=== PATIENT | female | born 1960 | race Caucasian/White ===

== ENCOUNTER → 2018-03-27 | Outpatient (CLI) | payer BC, OTHER ==
[~2018-03-27] MED LIST: ASPEC325; CLTP PO; FLX10 PO; HYDR-4079 PO; MELO7.5T5 PO; MORP60CA18 PO; MULT-506 PO; PRLSR20 PO; TRVOPS OPB
--- NOTE | 2018-03-28 09:32 | PULMONARY FUNCTION TEST ---
Spirometry is normal. Repeat study done following bronchodilator showed no change in function. Flow volume loops are normal.
== END | disposition home or self-care (01) ==
LOC: C.RC 12:42
PROVIDERS: ATTEND Internal Medicine
DX: R00.2 Palpitations (principal); R06.02 Shortness of breath; F17.210 Nicotine dependence, cigarettes, uncomplicated

== ENCOUNTER 2020-01-28 15:59 | Observation (INO) ==
[2020-01-28] MEDS ORDERED: NITROGLYCERIN SL 0.4 MG/TAB TAB SL PRN (16:19)
[2020-01-28 16:27] LABS: Basophils # (auto) 0.03 K/uL (0-0.2); Basophils % (auto) 0.3 %; Eosinophils # (auto) 0.19 K/uL (0-0.5); Eosinophils % (auto) 2.2 %; Hematocrit (blood only) 41.9 % (37-47); Hemoglobin 14.3 g/dL (12.0-16.0); Immature Granulocytes # (auto) 0.03 K/uL (0.00-0.02); Immature Granulocytes % (auto) 0.3 %; Lymphocytes # (auto) 3.01 K/uL (1.2-3.4); Lymphocytes % (auto) 34.8 %; Mean Corpuscular Hemoglobin 33.7 pg (25-34); Mean Corpuscular Hgb Conc 34.1 g/dL (32-36); Mean Corpuscular Volume 98.8 fL (80-100); Mean Platelet Volume 10.1 fL (7.4-10.4); Monocytes # (auto) 0.51 K/uL (0.11-0.59); Monocytes % (auto) 5.9 %; Neutrophils # (auto) 4.87 K/uL (1.4-6.5); Neutrophils % (auto) 56.5 %; Platelet Count 268 K/uL (130-400); RDW Coefficient of Variation 12.7 % (11.5-14.5); RDW Standard Deviation 45.7 fL (36.4-46.3); Red Blood Count 4.24 M/uL (4.2-5.4); White Blood Count 8.64 K/uL (4.8-10.8)
--- NOTE | 2020-01-28 16:27 | Emergency Department Note ---
ED Visit Note Patient was seen and evaluated at the bedside w/ MERE Amin. Please see their note for history, physical, details, and disposition. Patient does present with concern for chest pain substernal exertional in nature. Also present rest. The patient is already taken a full dose aspirin. Blood work was obtained along with an EKG which is nonischemic ordered nitro. A chest x-ray was also ordered. Patient is normal white count H&H and platelet count. Kidney function is unremarkable. Troponin is not detectable currently. Lipase borderline elevated. Patient was admitted to the medicine service. .
--- NOTE | 2020-01-28 16:37 | Emergency Department Note ---
Impression & Plan Exertional chest pain, Hypertension, Tachycardia ED Provider Note CHIEF COMPLAINT: Chest pain HISTORY OF PRESENTING ILLNESS: This is a 60-year-old female with past medical history significant for hypertension, dyslipidemia, prediabetes, and tachycardia, who presents to the emergency department by private vehicle with complaint of chest pain that started around 2 PM today. Patient notes that she has been having exertional chest pain and shortness of breath for the past few weeks, but the symptoms usually resolve when she rests. Today she started to have some chest pain with mild exertion and she sat down, but the pain did not go away with rest. She notes a history of tachycardia that was diagnosed a few years ago, she states she takes metoprolol for this. She states that she has been feeling like she is having irregular heartbeat today. She notes that she has been feeling lightheaded off and on as well which is new today. She states the chest pain is in the center of her chest, does not radiate, is constant and feels like a pressure, she currently rates it a 7/10. She states she took a full-strength aspirin earlier today and has been taking aspirin for the past few weeks since her chest pain started. She notes that she has had a stress test in the past about 2 years ago that was unremarkable. She is a current everyday smoker. She also notes a family history for heart disease, states her father has had several heart attacks. REVIEW OF SYSTEMS: A complete 10 point review of systems was reviewed with the patient with pertinent positives and negatives as per history of present illness. All else were negative. PAST MEDICAL HISTORY: Hypertension, dyslipidemia, tachycardia, cervical radiculopathy, restless leg syndrome, prediabetes SOCIAL HISTORY: Lives at home with her , she is a current every day smoker ALLERGIES: Reviewed in chart and with the patient PHYSICAL EXAM: CONSTITUTIONAL: Pleasant and cooperative. Nontoxic-appearing and in no acute distress. Well appearing and well nourished. HEENT: Normocephalic, atraumatic. NECK: Supple, full active range of motion without discomfort. No cervical adenopathy. No JVD. RESPIRATORY: Scant expiratory wheezes, but otherwise clear to auscultation bilaterally with no crackles, rhonchi or stridor. Mild tachypnea, but no labored breathing. No accessory muscle use. Equal expansion bilaterally. CARDIOVASCULAR: Tachycardic, irregular rhythm with no murmurs, rubs or gallops. Normal peripheral perfusion, 2+ distal pulses in all 4 extremities. No pitting edema. GASTROINTESTINAL: Soft, nontender, nondistended. No palpable masses or HSM. Bowel sounds present in all quadrants. MUSCULOSKELETAL: No calf tenderness or swelling. Negative Homans sign. Full range of motion of all joints without discomfort. INTEGUMENTARY: No rash or other significant dermatologic conditions noted. NEUROLOGIC: Alert and oriented X 4 with normal affect. Normal strength and sensation in all 4 extremities. Normal speech. Normal gait observed. ED COURSE AND MEDICAL DECISION MAKING: CC: Patient presenting with complaint of chest pain DIFFERENTIAL DIAGNOSIS: Includes, but not limited to acute coronary syndrome, unstable angina, pulmonary embolism, aortic dissection, pneumothorax, pericarditis, anxiety, musculoskeletal pain, GERD, costochondritis, pneumonia, among others. INTERPRETATION OF LABS: No leukocytosis, no anemia, normal platelets, no significant electrolyte abnormalities, normal renal function, normal T bili and ALT, mildly elevated AST and alk phos, mildly elevated lipase. CK-MB, total CK, and initial troponin are all negative. Coagulation factors within normal limits. IMAGING: XR chest 1V portable HISTORY: 60 years-old Female Chest Pain acute atypical chest pain COMPARISON: None TECHNIQUE: Portable AP view the chest FINDINGS: Cardiac mediastinal and hilar silhouettes are within normal limits. No pneumothorax, pleural effusion, airspace consolidation or overt pulmonary edema. Bones of the chest appear grossly intact. IMPRESSION: No acute process. EKG: Shows sinus tachycardia with a rate of 117 bpm, normal intervals, no ST or T wave abnormalities, no ectopy by my interpretation. No previous EKG available for comparison. MEDICATION RECONCILIATION: I attest that I have personally reviewed the patient's current medication list. INITIAL VITAL SIGNS REVIEW: I reviewed the patient's initial vital signs and interpret them as follows: T: Afebrile; BP: Hypertensive; HR: Tachycardic; RR: Tachypneic; Pulse Ox: Within normal limits on room air. Blood pressure screening: The patient was found to have an elevated blood pressure and was referred to the inpatient team for further management. MDM SUMMARY: Patient was evaluated at bedside, history and physical exam performed. Patient is alert and oriented, in no acute distress, resting calmly in the stretcher. EKG reviewed at bedside, no ischemic changes noted. Cardiac monitoring: An order was placed for continuous cardiac monitoring. The monitor shows a rate of 125 bpm with sinus tachycardia rhythm. The patient does note a history of tachycardia and states her baseline heart rate is between 100 to 120 bpm normally. Lungs are clear, the patient is not tachypneic or with labored breathing on my assessment. No hypoxia. Heart score of 5, placing her at moderate risk. Wells' score is 1.5, low risk and I have a low suspicion for PE. Orders were placed at bedside for labs, chest x-ray to evaluate for cardiopulmonary disease. Sublingual nitroglycerin to treat chest pain. She already had a full strength aspirin earlier today. Patient discussed with Dr. Daly, who agrees with my assessment, plan, and disposition. Labs and imaging reviewed as above, cardiac markers are all negative. A second troponin is pending. The lipase is noted to be mildly elevated. The patient does not have any abdominal tenderness on repeat exam, I do not suspect pancreatitis clinically. Chest x-ray is clear. Given the patient's report of progressively worsening exertional chest pain that is now persistent at rest, along with her moderate risk factors, I feel that she would benefit from an observation stay for chest pain rule out and probable stress test tomorrow. Patient reassessed multiple times throughout ED stay, she has remained hemodynamically stable, her chest pain was slightly improved with the nitroglycerin. The patient was updated on all results and plan for admission for chest pain ru le out, she was agreeable to this plan. We spoke with Dr. Jackson, [facility] hospitalist, who agrees to evaluate the patient for admission/observation. Patient was stable at time of admission. The chart was completed utilizing [employer] Speech voice recognition software. Grammatical errors, random word insertions, pronoun errors, and incomplete sentences are an occasional consequence of this system due to software limitations, ambient noise, and hardware issues. Any formal questions or concer ns about the content, text, or information contained within the body of this dictation should be directly addressed to the nurse practitioner for clarification. Past Med/Surg History Medical History Bilateral leg weakness Cervical radiculopathy Dyslipidemia Hypertension Low back pain Neck pain Numbness and tingling in both hands Palpitations RLS (restless legs syndrome) SOB (shortness of breath) Tachycardia Thoracic spine pain Surgical History No history of previous surgery Family History Father Hx of CABG Social History Preferred Language: Romanian Communication Ability: Effective Property Appraiser Required: No Beliefs That Will Affect Care: None Current Living Situation: Spouse Other Information That Helps Us Care for You: No Feels Safe at Home: Yes Safety Concerns: Feels Safe At This Time Smoking Status: Current every day smoker Tobacco Type: cigarettes ; Cigarettes Per Day: 5 ; Do You Dip or Chew Tobacco: No ; Second Hand Exposure: Yes ; Tobacco Cessation Education Requested by Patient: No Hx Alcohol Use: Yes Alcohol type: wine Hx Substance Use: No Allergies Allergies Allergy/AdvReac Type Severity Reaction Status Date / Time fentanyl Allergy Mild RASH Unverified 01/28/20 17:55 oxycodone Allergy Mild RASH Unverified 01/28/20 17:55 Home Meds Home Medications Medication Instructions Recorded Confirmed pantoprazole 20 mg tablet,delayed 20 mg PO QAM 06/22/19 01/28/20 release simvastatin 5 mg tablet 5 mg PO HS 06/22/19 01/28/20 lisinopril 20 mg tablet 20 mg PO BID tab 10/05/19 01/28/20 propylthiouracil 50 mg tablet 50 mg PO MOWEFR tab 10/05/19 01/28/20 aspirin 325 mg PO DAILY PRN 01/28/20 01/28/20 biotin 2,500 mcg PO QAM 01/28/20 01/28/20 cholecalciferol (vitamin D3) 5,000 units PO QAM 01/28/20 01/28/20 metoprolol succinate 100 mg PO QAM 01/28/20 01/28/20 multivitamin 1 tab PO QAM 01/28/20 01/28/20 pramipexole 0.25 mg PO TID 01/28/20 01/28/20 Previous Rx's Medication Instructions Recorded cyclobenzaprine 10 mg tablet 10 mg PO BID 30 Days #180 tab 10/05/19 meloxicam 7.5 mg tablet 7.5 mg PO BID 90 Days #180 tab 02/03/20 Results & Data (ED) Vital Signs Vital Signs - 24 hr 01/28/20 16:02 01/28/20 16:19 01/28/20 16:30 Temperature 36.7 C Temperature Source Oral Pulse Rate 120 H 120 H 121 H Pulse Rate from SpO2 Sensor Respiratory Rate 28 H 18 21 Respiratory Effort / Characteristics Labored Respiratory Depth Shallow Respiratory Pattern Tachypnea Blood Pressure 148/102 H 146/92 H 131/94 Blood Pressure Mean 117 96 109 Pulse Oximetry 100 98 95 Oxygen Delivery Method Room Air Sepsis Recent Fever Within 48 Hours No Sepsis Action Taken by Nursing No Action Required 01/28/20 17:26 01/28/20 17:27 01/28/20 17:30 Temperature Temperature Source Pulse Rate 128 H 131 H Pulse Rate from SpO2 Sensor 112 H Respiratory Rate 15 18 Respiratory Effort / Characteristics Respiratory Depth Respiratory Pattern Blood Pressure 122/84 128/85 Blood Pressure Mean 93 93 Pulse Oximetry 97 96 95 Oxygen Delivery Method Room Air Sepsis Recent Fever Within 48 Hours Sepsis Action Taken by Nursing 01/28/20 18:00 01/28/20 18:30 01/28/20 18:34 Temperature Temperature Source Pulse Rate 131 H 129 H 131 H Pulse Rate from SpO2 Sensor 129 H 126 H 120 H Respiratory Rate 17 18 17 Respiratory Effort / Characteristics Respiratory Depth Respiratory Pattern Blood Pressure 121/83 124/95 Blood Pressure Mean 94 99 Pulse Oximetry 96 95 96 Oxygen Delivery Method Sepsis Recent Fever Within 48 Hours Sepsis Action Taken by Nursing Laboratory Data Result diagrams: 01/28/20 16:12 01/28/20 16:12 Lab Results 01/28/20 01/28/20 01/28/20 Range/Units 16:12 16:12 16:12 WBC 8.64 (4.8-10.8) K/uL RBC 4.24 (4.2-5.4) M/uL Hgb 14.3 (12.0-16.0) g/dL Hct 41.9 (37-47) % MCV 98.8 (80-100) fL MCH 33.7 (25-34) pg MCHC 34.1 (32-36) g/dL RDW Std Deviation 45.7 (36.4-46.3) fL RDW Coeff of Tristen 12.7 (11.5-14.5) % Plt Count 268 (130-400) K/uL MPV 10.1 (7.4-10.4) fL Immature Gran % (Auto) 0.3 % Neut % (Auto) 56.5 % Lymph % (Auto) 34.8 % [place] % (Auto) 5.9 % Eos % (Auto) 2.2 % Baso % (Auto) 0.3 % Immature Gran # (Auto) 0.03 H (0.00-0.02) K/uL Neut # (Auto) 4.87 (1.4-6.5) K/uL Lymph # (Auto) 3.01 (1.2-3.4) K/uL [place] # (Auto) 0.51 (0.11-0.59) K/uL Eos # (Auto) 0.19 (0-0.5) K/uL Baso # (Auto) 0.03 (0-0.2) K/uL PT 10.5 (9.0-12.0) Seconds INR 1.0 (0.9-1.1) APTT 25.0 (21.0-31.0) Seconds PTT Ratio 0.9 Sodium 138 (136-145) mmol/L Potassium 3.6 (3.5-5.1) mmol/L Chloride 106 (98-107) mmol/L Carbon Dioxide 25 (21-32) mmol/L Anion Gap 7.0 (3-11) BUN 9 (7-18) mg/dl Creatinine 0.94 (0.6-1.2) mg/dl Est Cr Clr Drug Dosing 64.0 ml/min Est GFR ( Amer) 77.5 Est GFR (Non-Af Amer) 66.9 BUN/Creatinine Ratio 9.8 L (10-20) Glucose 114 H (70-99) mg/dl Calcium 10.2 H (8.5-10.1) mg/dl Magnesium 2.2 (1.8-2.4) mg/dl Total Bilirubin 0.3 (0.2-1) mg/dl AST 56 H (15-37) U/L ALT 75 (12-78) U/L Alkaline Phosphatase 138 H (45-117) U/L Total Creatine Kinase 104 (26-192) U/L CK-MB (CK-2) < 1.0 (0.5-3.6) ng/ml CK/CKMB % Calc TNP Troponin I < 0.015 (0-0.045) ng/ml Total Protein 8.3 H (6.4-8.2) gm/dl Albumin 4.2 (3.4-5.0) gm/dl Globulin 4.1 H (2.5-4.0) gm/dl Albumin/Globulin Ratio 1.0 (0.9-2) Lipase 606 H (73-393) U/L Administered Medications Aspirin (Ecotrin) 325 mg PO QAM REGGIE Stop: 02/27/20 19:59 Last Admin: 01/28/20 20:56 Dose: 325 mg Documented by: [id number] Cyclobenzaprine HCl (Flexeril) 10 mg PO BID REGGIE Stop: 02/27/20 20:59 Last Admin: 01/28/20 20:56 Dose: 10 mg Documented by: [id number] Heparin Sodium (Porcine) (Heparin Sodium (Porcine)) 5,000 units SQ Q8 REGGIE Stop: 02/27/20 21:59 Last Admin: 01/28/20 20:58 Dose: 5,000 units Documented by: [id number] Cosigned by: [id number] Ioversol (Optiray 320 125ml) 118 ml IV ONCE PRN PRN Reason: Interaction Checking Stop: 02/01/20 18:59 Last Admin: 01/28/20 19:01 Dose: 1 ml Documented by: [id number] Lisinopril (Zestril) 20 mg PO BID REGGIE Stop: 02/27/20 20:59 Last Admin: 01/28/20 20:56 Dose: 20 mg Documented by: [id number] Meloxicam (Mobic) 7.5 mg PO BID [facility] Stop: 02/27/20 20:59 Last Admin: 01/28/20 20:56 Dose: 7.5 mg Documented by: [id number] Nitroglycerin (Nitrostat) 0.4 mg SL UD PRN PRN Reason: Chest Pain Stop: 02/27/20 16:18 Last Admin: 01/28/20 17:07 Dose: 0.4 mg Documented by: [id number] Pramipexole Dihydrochloride (Mirapex) 0.25 mg PO TID REGGIE Stop: 02/27/20 20:59 Last Admin: 01/28/20 20:56 Dose: 0.25 mg Documented by: [id number] Simvastatin (Zocor) 5 mg PO HS [facility] Stop: 02/27/20 20:59 Last Admin: 01/28/20 21:27 Dose: 5 mg Documented by: [id number] Discharge Plan Visit Data *Final* Discharge Date/Time: 01/28/20 19:20 Chief Complaint: Chest Pain Stated Complaint: chest pain - sob - light headed - irregular pulse ED Provider: Thanh Daly ED Midlevel Provider: Mary Ludwig Discharge Problem: Exertional chest pain, Hypertension, Tachycardia Patient Disposition: Admitted As Inpatient Discharge Instructions Interventions: ED Discharge Assessment Last Done: 01/28/20 19:20 Discharge Problem: Hypertension Qualifiers: Hypertension type: unspecified Qualified Code(s): I10 - Essential (primary) hypertension
[2020-01-28 16:38] LABS: Partial Thromboplastin Ratio 0.9; Prothrombin Time 10.5 Seconds (9.0-12.0)
[2020-01-28 16:44] LABS: Alanine Aminotransferase 75 U/L (12-78); Albumin Level 4.2 gm/dl (3.4-5.0); Aspartate Aminotransferase 56 U/L (15-37); BUN Creatinine Ratio 9.8 (10-20); Blood Urea Nitrogen 9 mg/dl (7-18); Calcium 10.2 mg/dl (8.5-10.1); Carbon Dioxide 25 mmol/L (21-32); Chloride 106 mmol/L (98-107); Est GFR (African American) 77.5; Est GFR (Non-African American) 66.9; Glucose 114 mg/dl (70-99); Lipase 606 U/L (73-393); Magnesium 2.2 mg/dl (1.8-2.4); Potassium 3.6 mmol/L (3.5-5.1); Sodium 138 mmol/L (136-145)
[2020-01-28 16:49] LABS: Alkaline Phosphatase 138 U/L (45-117); Bilirubin,Total 0.3 mg/dl (0.2-1); Creatine Kinase 104 U/L (26-192); Creatine Kinase MB < 1.0 ng/ml (0.5-3.6); Globulin 4.1 gm/dl (2.5-4.0); Total Protein 8.3 gm/dl (6.4-8.2); Troponin I < 0.015 ng/ml (0-0.045)
--- NOTE | 2020-01-28 16:52 | XRay Report ---
XR chest 1V portable HISTORY: 60 years-old Female Chest Pain acute atypical chest pain COMPARISON: None TECHNIQUE: Portable AP view the chest FINDINGS: Cardiac mediastinal and hilar silhouettes are within normal limits. No pneumothorax, pleural effusion , airspace consolidation or overt pulmonary edema. Bones of the chest appear grossly intact. IMPRESSION: No acute process. ACT 112: Negative or not required by law. The above report was generated using voice recognition software. It may contain grammatical, syntax o r spelling errors. Electronically signed by: Stephan Watt M.D. 01/28/2020 4:51 PM
--- NOTE | 2020-01-28 18:49 | History & Physical Report ---
Date of Service January 28, 2020 Assessment & Plan (1) Tachycardia: (2) RLS (restless legs syndrome): (3) Palpitations: (4) Hypertension: (5) Dyslipidemia: (6) Chest pain: Cardiology eval, Obs tele, continue OP meds, Damaris, ASA, SC Heparin, She says tachycardia is normal for her, DDimer, if Pos CTA Chest ROS-No Headache, No Visual Changes, No Nausea, No Vomiting, No Fever, No Chills, No Neck Pain or Stiffness, + Chest Pain, + Palpitations, + SOB, No ANAND, No Cough, No Sputum, No Wheezing, No Abdominal Pain, No Diarrhea, No Hematemesis, No Hemoptysis, No Unexpected Weight Loss, No Flank pain, No Melena, No Hematochezia, No Frequency, No Urgency, No Burning, No Hematuria, No Rashes, No Diaphoresis. Appetite is Normal Physical Exam Gen-AAO x 3, NAD, Afebrile Head-NCAT, EOMI, PERRLA, Anicteric Sclera, No Posterior Pharyngeal Erythema Neck-Supple, No JVD, No Thyromegaly, No Masses, No LAD, No Bruits Lungs-Clear to Auscultation Bilaterally, No Rales, No Rhonchi, No Wheezing, No Crepitus Chest-ST c PVCs, No S4, +S1, +S2, No S3, No Murmurs, No Rubs, No Gallops, + Ectopy Abdomen-Soft, Bowel Sounds Present, Non Tender, Non Distended, No Hepatomegaly, No Splenomegaly, No Palpable Masses, No Rebound, No Rigidity, No Guarding Musculoskeletal-Full Range of Motion Bilaterally, No CVAT Extremities-No Cyanosis, No Clubbing, No Edema Nuero-Cranial Nerves II-XII grossly intact, Motor WNL, DTRs WNL, Strength WNL, Non Focal Psych-Normal Mood History of Present Illness 60 yo female c PMH below c/o CP today 02/09 in the center of her chest. No radia tion to neck, Jaw, or down her arms. +SOB and lightheadedness with it. No diaphoresis. She also c/o irreg pulse, but has a Hx of PVCs and wore a monitor for a week a few years ago that diagnosed this. PMH Back Pain, HLD, HTN, Pre DM, Thyrotoxicosis, GERD, DDD PSH L4-4 back Sx, T&A FH Mother alive c DM, F alive w CAD, AMI, 7V Cabg, 3 healthy sisters, no brothers, no kids Soc , Disabled, 1 ppd x 42 years, +Wine Primary Care Provider: Feli Willis Allergies Allergy/AdvReac Type Severity Reaction Status Date / Time fentanyl Allergy Mild RASH Unverified 01/28/20 17:55 oxycodone Allergy Mild RASH Unverified 01/28/20 17:55 Home Medications Home Medications Medication Instructions Recorded Confirmed Type pantoprazole 20 mg tablet,delayed 20 mg PO QAM 06/22/19 01/28/20 History release simvastatin 5 mg tablet 5 mg PO HS 06/22/19 01/28/20 History cyclobenzaprine 10 mg tablet 10 mg PO BID 30 Days #180 tab 10/05/19 01/28/20 Rx lisinopril 20 mg tablet 20 mg PO BID tab 10/05/19 01/28/20 History meloxicam 7.5 mg tablet 7.5 mg PO BID 90 Days #180 tab 10/05/19 01/28/20 Rx propylthiouracil 50 mg tablet 50 mg PO MOWEFR tab 10/05/19 01/28/20 History aspirin 325 mg PO DAILY PRN 01/28/20 01/28/20 History biotin 2,500 mcg PO QAM 01/28/20 01/28/20 History cholecalciferol (vitamin D3) 5,000 units PO QAM 01/28/20 01/28/20 History metoprolol succinate 100 mg PO QAM 01/28/20 01/28/20 History multivitamin 1 tab PO QAM 01/28/20 01/28/20 History pramipexole 0.25 mg PO TID 01/28/20 01/28/20 History Past Med/Surg History Medical History Bilateral leg weakness Cervical radiculopathy Dyslipidemia Hypertension Low back pain Neck pain Numbness and tingling in both hands Palpitations RLS (restless legs syndrome) SOB (shortness of breath) Tachycardia Thoracic spine pain Surgical History No history of previous surgery Family History Father Hx of CABG Social History Feels Safe at Home: Yes Smoking Status: Current every day smoker Results & Data Results & Data ([facility]) Vital Signs (Past 12 Hours) Vital Signs Temp Pulse Resp BP Pulse Ox 01/28/20 18:34 131 H 17 96 01/28/20 18:30 129 H 18 124/95 95 01/28/20 18:00 131 H 17 121/83 96 01/28/20 17:30 131 H 18 128/85 95 01/28/20 17:27 128 H 15 122/84 96 01/28/20 17:26 97 01/28/20 16:30 121 H 21 131/94 95 01/28/20 16:19 120 H 18 146/92 H 98 01/28/20 16:02 36.7 C 120 H 28 H 148/102 H 100 Allergies fentanyl Allergy (Mild, Unverified 01/28/20 17:55) RASH oxycodone Allergy (Mild, Unverified 01/28/20 17:55) RASH Height/Weight/Isolation Height 5 ft 3 in Weight 76.7 kg Chemistry 01/28/20 16:12 Sodium 138 Potassium 3.6 Chloride 106 Carbon Dioxide 25 Anion Gap 7.0 BUN 9 Creatinine 0.94 Glucose 114 H Code Status & VTE Plan VTE Prophylaxis Plan VTE Prophylaxis will be ordered: Yes
[2020-01-28] MEDS ORDERED: OPTIRAY 320 125ml IV PRN (19:00)
--- NOTE | 2020-01-28 19:26 | CT Scan Report ---
CT ANGIOGRAM OF THE CHEST CLINICAL HISTORY: Atypical chest pain. Suspected pulmonary embolism. COMPARISON STUDY: Chest x-ray dated 01/20/2020 TECHNIQUE: Following the IV administration of 118 mL of Optiray-320, CT angiogram of the thorax was p erformed from the thoracic inlet to the lung bases utilizing the pulmonary embolus protocol. Images a re reviewed in the axial, sagittal, and coronal planes. IV contrast was administered without complica tion. MIP imaging was performed. A dose lowering technique was utilized adhering to the principles o f ALARA. CT DOSE: 317.49 mGy.cm FINDINGS: There is hepatic steatosis. There is no evidence of pathologic adenopathy. There are bilateral breast nodules. These were described on prior mammography. There was no evidence of thoracic aortic dilatation. There were no pulmonary artery filling defects to indicate acute pulmonary embolism. No pleural effusions are visualized. There is no focal pulmonary consolidation. There is mild dependent groundglass opacity, likely atelec tatic. There is mild respiratory motion artifact IMPRESSION: 1. No evidence of acute pulmonary embolism 2. No evidence of focal pulmonary consolidation 3. No evidence of pneumothorax. No pleural effusions 4. Hepatic steatosis ACT 112: Negative or not required by law. Electronically signed by: Abhinav Edward M.D. 01/28/2020 7:25 PM
[2020-01-28] MEDS ORDERED: MAGNESIUM HYDROXIDE SUSP 30 ML UDC PO PRN (19:51)
[2020-01-28] MEDS ORDERED: MoRPHine SULFATE 4 MG/ML 1 ML CARP\\VIAL IV PRN (19:51)
[2020-01-28] MEDS ORDERED: ACETAMINOPHEN 325 MG TAB PO PRN (19:51)
[2020-01-28] MEDS ORDERED: ASPIRIN 325 MG ECTAB PO PRN (19:51)
[2020-01-28] MEDS ORDERED: ONDANSETRON INJ 2 MG/ML 2 ML VIAL IV PRN (19:51)
[2020-01-28 20:01] LABS: Troponin I < 0.015 ng/ml (0-0.045)
[2020-01-28 20:14] LABS: T4 Free Thyroxine 1.03 ng/dl (0.8-1.6)
[2020-01-28] MEDS ORDERED: PNEUMOCOCCAL ADMINISTRATION CHARGE ONE (20:37)
[2020-01-28] MEDS ORDERED: PNEUMOCOCCAL POLYSACCHARIDES 25 MCG/0.5 ML VIAL/SYR IM ONE (20:37)
[2020-01-28 20:44] LABS: D Dimer 390 ug/L FEU (0-500)
[2020-01-28] MEDS: ASPIRIN 325 MG ECTAB PO SCH (20:56)
[2020-01-28] MEDS: lisinopriL 20 MG TAB PO SCH (20:56)
[2020-01-28] MEDS: CYCLOBENZAPRINE HCL 10 MG TAB PO SCH (20:56)
[2020-01-28] MEDS: PRAMIPEXOLE DIHYDROCHLO 0.25 MG TAB PO SCH (20:56)
[2020-01-28] MEDS: MELOXICAM 7.5 MG TAB PO SCH (20:56)
[2020-01-28] MEDS: HEPARIN SOD 5,000 UNIT/0.5 ML VIAL SQ SCH (20:58)
[2020-01-28] MEDS ORDERED: SIMVASTATIN 5 MG TAB PO SCH (21:00)
[2020-01-29 02:15] LABS: Hematocrit (blood only) 39.7 % (37-47); Hemoglobin 13.3 g/dL (12.0-16.0); Mean Corpuscular Hemoglobin 33.3 pg (25-34); Mean Corpuscular Hgb Conc 33.5 g/dL (32-36); Mean Corpuscular Volume 99.3 fL (80-100); Mean Platelet Volume 9.6 fL (7.4-10.4); Platelet Count 224 K/uL (130-400); RDW Coefficient of Variation 12.7 % (11.5-14.5); RDW Standard Deviation 46.4 fL (36.4-46.3); White Blood Count 7.58 K/uL (4.8-10.8)
[2020-01-29 02:33] LABS: BUN Creatinine Ratio 12.5 (10-20); Blood Urea Nitrogen 10 mg/dl (7-18); Calcium 9.1 mg/dl (8.5-10.1); Carbon Dioxide 26 mmol/L (21-32); Chloride 107 mmol/L (98-107); Creatinine Clr Calc Pharmacy 74.2 ml/min; Est GFR (African American) 92.8; Est GFR (Non-African American) 80.1; Glucose 119 mg/dl (70-99); Potassium 3.8 mmol/L (3.5-5.1); Sodium 139 mmol/L (136-145)
[2020-01-29 02:38] LABS: Troponin I < 0.015 ng/ml (0-0.045)
[2020-01-29] MEDS: HEPARIN SOD 5,000 UNIT/0.5 ML VIAL SQ SCH ×2 (05:06→14:25)
--- NOTE | 2020-01-29 07:20 | Discharge Summary ---
Date of Service January 29, 2020 Admission HPI Per Admitting Provider 60 yo female c PMH below c/o CP today 02/09 in the center of her chest. No radiation to neck, Jaw, or down her arms. +SOB and lightheadedness with it. No diaphoresis. She also c/o irreg pulse, but has a Hx of PVCs and wore a monitor for a week a few years ago that diagnosed this. Admission Exam Per Admitting Provider Gen-AAO x 3, NAD, Afebrile Head-NCAT, EOMI, PERRLA, Anicteric Sclera, No Posterior Pharyngeal Erythema Neck-Supple, No JVD, No Thyromegaly, No Masses, No LAD, No Bruits Lungs-Clear to Auscultation Bilaterally, No Rales, No Rhonchi, No Wheezing, No Crepitus Chest-ST c PVCs, No S4, +S1, +S2, No S3, No Murmurs, No Rubs, No Gallops, + Ectopy Abdomen-Soft, Bowel Sounds Present, Non Tender, Non Distended, No Hepatomegaly, No Splenomegaly, No Palpable Masses, No Rebound, No Rigidity, No Guarding Musculoskeletal-Full Range of Motion Bilaterally, No CVAT Extremities-No Cyanosis, No Clubbing, No Edema Nuero-Cranial Nerves II-XII grossly intact, Motor WNL, DTRs WNL, Strength WNL, Non Focal Psych-Normal Mood Principal Diagnosis CP Palpitations Tachycardia: RLS (restless legs syndrome): Hypertension: Dyslipidemia: Discharge Exam Physical Exam Gen-AAO x 3, NAD, Afebrile Head-NCAT, EOMI, PERRLA, Anicteric Sclera, No Posterior Pharyngeal Erythema Neck-Supple, No JVD, No Thyromegaly, No Masses, No LAD, No Bruits Lungs-Clear to Auscultation Bilaterally, No Rales, No Rhonchi, No Wheezing, No Crepitus Chest-No S4, +S1, +S2, No S3, No Murmurs, No Rubs, No Gallops, No Ectopy Abdomen-Soft, Bowel Sounds Present, Non Tender, Non Distended, No Hepatomegaly, No Splenomegaly, No Palpable Masses, No Rebound, No Rigidity, No Guarding Musculoskeletal-Full Range of Motion Bilaterally, No CVAT Extremities-No Cyanosis, No Clubbing, No Edema Nuero-Cranial Nerves II-XII grossly intact, Motor WNL, DTRs WNL, Strength WNL, Non Focal Psych-Normal Mood Discharge Data Allergies Allergy/AdvReac Type Severity Reaction Status Date / Time fentanyl Allergy Mild RASH Unverified 01/28/20 17:55 oxycodone Allergy Mild RASH Unverified 01/28/20 17:55 Consultations 01/28/20 18:10 ED Decision to Admit Stat 01/28/20 19:51 Consult Cardiology Routine Ordered Studies 01/28/20 18:56 CT angio chest PE protocol Stat negative for PE 01/29/20 01/29/20 01/28/20 Range/Units 01:58 01:58 20:23 WBC 7.58 (4.8-10.8) K/uL RBC 4.00 L (4.2-5.4) M/uL Hgb 13.3 (12.0-16.0) g/dL Hct 39.7 (37-47) % MCV 99.3 (80-100) fL MCH 33.3 (25-34) pg MCHC 33.5 (32-36) g/dL RDW Std Deviation 46.4 H (36.4-46.3) fL RDW Coeff of Tristen 12.7 (11.5-14.5) % Plt Count 224 (130-400) K/uL MPV 9.6 (7.4-10.4) fL Immature Gran % (Auto) % Neut % (Auto) % Lymph % (Auto) % [place] % (Auto) % Eos % (Auto) % Baso % (Auto) % Immature Gran # (Auto) (0.00-0.02) K/uL Neut # (Auto) (1.4-6.5) K/uL Lymph # (Auto) (1.2-3.4) K/uL [place] # (Auto) (0.11-0.59) K/uL Eos # (Auto) (0-0.5) K/uL Baso # (Auto) (0-0.2) K/uL PT (9.0-12.0) Seconds INR (0.9-1.1) APTT (21.0-31.0) Seconds PTT Ratio D-Dimer 390 (0-500) ug/L FEU Sodium 139 (136-145) mmol/L Potassium 3.8 (3.5-5.1) mmol/L Chloride 107 (98-107) mmol/L Carbon Dioxide 26 (21-32) mmol/L Anion Gap 6.0 (3-11) BUN 10 (7-18) mg/dl Creatinine 0.81 (0.6-1.2) mg/dl Est Cr Clr Drug Dosing 74.2 ml/min Est GFR ( Amer) 92.8 Est GFR (Non-Af Amer) 80.1 BUN/Creatinine Ratio 12.5 (10-20) Glucose 119 H (70-99) mg/dl Calcium 9.1 (8.5-10.1) mg/dl Magnesium (1.8-2.4) mg/dl Total Bilirubin (0.2-1) mg/dl AST (15-37) U/L ALT (12-78) U/L Alkaline Phosphatase (45-117) U/L Total Creatine Kinase (26-192) U/L CK-MB (CK-2) (0.5-3.6) ng/ml CK/CKMB % Calc Troponin I < 0.015 (0-0.045) ng/ml Total Protein (6.4-8.2) gm/dl Albumin (3.4-5.0) gm/dl Globulin (2.5-4.0) gm/dl Albumin/Globulin Ratio (0.9-2) Lipase (73-393) U/L TSH (0.300-4.500) uIu/ml Free T4 (0.8-1.6) ng/dl Hepatitis C Ab Screen (Neg) 01/28/20 01/28/20 01/28/20 Range/Units 20:23 19:29 19:29 WBC (4.8-10.8) K/uL RBC (4.2-5.4) M/uL Hgb (12.0-16.0) g/dL Hct (37-47) % MCV (80-100) fL MCH (25-34) pg MCHC (32-36) g/dL RDW Std Deviation (36.4-46.3) fL RDW Coeff of Tristen (11.5-14.5) % Plt Count (130-400) K/uL MPV (7.4-10.4) fL Immature Gran % (Auto) % Neut % (Auto) % Lymph % (Auto) % [place] % (Auto) % Eos % (Auto) % Baso % (Auto) % Immature Gran # (Auto) (0.00-0.02) K/uL Neut # (Auto) (1.4-6.5) K/uL Lymph # (Auto) (1.2-3.4) K/uL [place] # (Auto) (0.11-0.59) K/uL Eos # (Auto) (0-0.5) K/uL Baso # (Auto) (0-0.2) K/uL PT (9.0-12.0) Seconds INR (0.9-1.1) APTT (21.0-31.0) Seconds PTT Ratio D-Dimer (0-500) ug/L FEU Sodium (136-145) mmol/L Potassium (3.5-5.1) mmol/L Chloride (98-107) mmol/L Carbon Dioxide (21-32) mmol/L Anion Gap (3-11) BUN (7-18) mg/dl Creatinine (0.6-1.2) mg/dl Est Cr Clr Drug Dosing ml/min Est GFR ( Amer) Est GFR (Non-Af Amer) BUN/Creatinine Ratio (10-20) Glucose (70-99) mg/dl Calcium (8.5-10.1) mg/dl Magnesium (1.8-2.4) mg/dl Total Bilirubin (0.2-1) mg/dl AST (15-37) U/L ALT (12-78) U/L Alkaline Phosphatase (45-117) U/L Total Creatine Kinase (26-192) U/L CK-MB (CK-2) (0.5-3.6) ng/ml CK/CKMB % Calc Troponin I < 0.015 < 0.015 (0-0.045) ng/ml Total Protein (6.4-8.2) gm/dl Albumin (3.4-5.0) gm/dl Globulin (2.5-4.0) gm/dl Albumin/Globulin Ratio (0.9-2) Lipase (73-393) U/L TSH 5.110 H (0.300-4.500) uIu/ml Free T4 1.03 (0.8-1.6) ng/dl Hepatitis C Ab Screen Neg (Neg) 01/28/20 01/28/20 01/28/20 Range/Units 16:12 16:12 16:12 WBC 8.64 (4.8-10.8) K/uL RBC 4.24 (4.2-5.4) M/uL Hgb 14.3 (12.0-16.0) g/dL Hct 41.9 (37-47) % MCV 98.8 (80-100) fL MCH 33.7 (25-34) pg MCHC 34.1 (32-36) g/dL RDW Std Deviation 45.7 (36.4-46.3) fL RDW Coeff of Tristen 12.7 (11.5-14.5) % Plt Count 268 (130-400) K/uL MPV 10.1 (7.4-10.4) fL Immature Gran % (Auto) 0.3 % Neut % (Auto) 56.5 % Lymph % (Auto) 34.8 % [place] % (Auto) 5.9 % Eos % (Auto) 2.2 % Baso % (Auto) 0.3 % Immature Gran # (Auto) 0.03 H (0.00-0.02) K/uL Neut # (Auto) 4.87 (1.4-6.5) K/uL Lymph # (Auto) 3.01 (1.2-3.4) K/uL [place] # (Auto) 0.51 (0.11-0.59) K/uL Eos # (Auto) 0.19 (0-0.5) K/uL Baso # (Auto) 0.03 (0-0.2) K/uL PT 10.5 (9.0-12.0) Seconds INR 1.0 (0.9-1.1) APTT 25.0 (21.0-31.0) Seconds PTT Ratio 0.9 D-Dimer (0-500) ug/L FEU Sodium 138 (136-145) mmol/L Potassium 3.6 (3.5-5.1) mmol/L Chloride 106 (98-107) mmol/L Carbon Dioxide 25 (21-32) mmol/L Anion Gap 7.0 (3-11) BUN 9 (7-18) mg/dl Creatinine 0.94 (0.6-1.2) mg/dl Est Cr Clr Drug Dosing 64.0 ml/min Est GFR ( Amer) 77.5 Est GFR (Non-Af Amer) 66.9 BUN/Creatinine Ratio 9.8 L (10-20) Glucose 114 H (70-99) mg/dl Calcium 10.2 H (8.5-10.1) mg/dl Magnesium 2.2 (1.8-2.4) mg/dl Total Bilirubin 0.3 (0.2-1) mg/dl AST 56 H (15-37) U/L ALT 75 (12-78) U/L Alkaline Phosphatase 138 H (45-117) U/L Total Creatine Kinase 104 (26-192) U/L CK-MB (CK-2) < 1.0 (0.5-3.6) ng/ml CK/CKMB % Calc TNP Troponin I < 0.015 (0-0.045) ng/ml Total Protein 8.3 H (6.4-8.2) gm/dl Albumin 4.2 (3.4-5.0) gm/dl Globulin 4.1 H (2.5-4.0) gm/dl Albumin/Globulin Ratio 1.0 (0.9-2) Lipase 606 H (73-393) U/L TSH (0.300-4.500) uIu/ml Free T4 (0.8-1.6) ng/dl Hepatitis C Ab Screen (Neg) Hospital Course (1) Tachycardia: (2) RLS (restless legs syndrome): (3) Palpitations: (4) Hypertension: (5) Dyslipidemia: (6) Chest pain: Cardiology saw her, DC, no further workup needed, Damaris are negative x 3, ASA, SC Heparin, She says tachycardia is normal for her, DDimer and CTA were negative Total Time Total Time Spent Total Time Spent (In Minutes): 45 mins Total Time Includes: Examination of the Patient, Discharge Planning, Medication Reconciliation and Communication With Other Providers Discharge Plan Discharge Items Patient Disposition: Home - Self-Care Reason For Visit: CHEST PAIN Discharge Diagnosis: CP Palpitations Tachycardia: RLS (restless legs syndrome): Hypertension: Dyslipidemia: Activity: Resume your previous activity Lifting: None Bathing: No limitations Sexual Activity: When tolerated Exercise/Sports: Gradually increase as tolerated Driving/Machine Use: No limitations Weightbearing: Full weightbearing Non-emergency contact: Primary Care Provider and Implementation Project Coordinator Call non-emergency contact if: you have any medication questions Follow-up/Referrals: Feli Willis [Primary Care Provider] - Diet: Heart Healthy Addtl Attending Provider Instructions: none Pending Studies at Discharge: No Stand-Alone Forms: My [facility], Smoking Cessation Medications and DC Order Prescriptions: Continued pantoprazole [Protonix] 20 mg tablet,delayed release (DR/EC) 20 mg PO QAM RF: 0 simvastatin 5 mg tablet 5 mg PO HS RF: 0 lisinopril 20 mg tablet 20 mg PO BID RF: 0 propylthiouracil 50 mg tablet 50 mg PO MOWEFR RF: 0 meloxicam 7.5 mg tablet 7.5 mg PO BID 90 Days Qty: 180 RF: 3 cyclobenzaprine 10 mg tablet 10 mg PO BID 30 Days Qty: 180 RF: 3 multivitamin Tablet 1 tab PO QAM RF: 0 aspirin 325 mg Tablet 325 mg PO DAILY PRN (Reason: Pain) RF: 0 biotin 2,500 mcg Capsule 2,500 mcg PO QAM RF: 0 pramipexole 0.25 mg tablet 0.25 mg PO TID RF: 0 cholecalciferol (vitamin D3) 5,000 unit capsule 5,000 units PO QAM RF: 0 metoprolol succinate 100 mg capsule,sprinkle,ER 24hr 100 mg PO QAM RF: 0 Discharge Orders: Discharge Order (Routine); Ordered 01/29/20 Ordered By: Nigel Jackson Admission Data Admit Date/Time: 01/28/20 18:38 Attending Provider: Nigel Jackson Admit Provider: Nigel Jackson Primary Care Provider: Feli Willis Other Providers: Wily Ghosh ; Nigel Jackson
[2020-01-29] MEDS: ASPIRIN 325 MG ECTAB PO SCH (08:16)
[2020-01-29] MEDS: lisinopriL 20 MG TAB PO SCH (08:16)
[2020-01-29] MEDS: CYCLOBENZAPRINE HCL 10 MG TAB PO SCH (08:16)
[2020-01-29] MEDS: PRAMIPEXOLE DIHYDROCHLO 0.25 MG TAB PO SCH ×2 (08:16→14:25)
[2020-01-29] MEDS: MELOXICAM 7.5 MG TAB PO SCH (08:16)
[2020-01-29] MEDS ORDERED: CHOLECALCIFEROL 1,000 UNITS 25 MCG TAB PO SCH (09:00)
[2020-01-29] MEDS ORDERED: PANTOprazole 40 MG TAB PO SCH (09:00)
[2020-01-29] MEDS ORDERED: NON-FORMULARY MEDICATION (Biotin 2,500 MCG) PO SCH (09:00)
[2020-01-29] MEDS ORDERED: propylthiouraciL 50 MG TAB PO SCH (09:00)
[2020-01-29] MEDS ORDERED: MULTIVITAMIN TAB PO SCH (09:00)
[2020-01-29] MEDS ORDERED: METOPROLOL SUCC 50MG EXT REL TAB PO SCH (09:00)
--- NOTE | 2020-01-29 11:38 | Cardiology Consultation ---
Date of Consultation January 29, 2020 Assessment & Plan (1) Atypical chest pain: Stefan Hart is a 60 y/o F with PMH significant for HTN, PVCs, Tachycardia, Cervical radiculopathy, and GERD; who presented to the hospital for evaluation of chest pain/discomfort that has been on-going for the last two weeks. Atypical Chest Pain: - atypical description of chest pain with increased anxiety and worry over her irregular pulse - EKG demonstrating sinus tachycardia, no ST elevation/depression - Troponin undetectable on admission and remained undetectable overnight - ECHO demonstrated normal LV function, mild tricuspid regurgitation, no wall motion abnormalities, borderline LVH - no further cardiac work-up indicated at this time History of Present Illness Attending Physician: Nigel Jackson, History of Present Illness Stefan Hart is a 60 y/o F with PMH significant for HTN, PVCs, Tachycardia, Cervical radiculopathy, and GERD; who presented to the hospital for evaluation of chest pain/discomfort that has been on-going for the last two weeks. Initially, two weeks ago she noticed that her heart had returned to a faster pace and she could feel her head pounding in her chest while at rest. She denies any new/unusual chest pain or discomfort at that time, as she has a baseline of GERD and cervical/thoracic radiculopathy and frequently has a more persistent central pain. This recurred intermittently over the last two weeks, without regular consistent features. She did notice that she would consistently feel short of breath during these times that was unusual for her; these times were consistently following checking her pulse, and feeling the continued faster pace. She recalls that she previously had a one week commodities broker, which demonstrated that she had regular PVCs, and was frequently tachycardic, but no arrhythmias. Patient admits that she has had increased feelings of anxiety over the last several weeks/months with current concerns over pandemic, and initially was not sure if this new shortness of breath was a result of her continued increasing anxiety or if this was a sign of changes to her heart. Allergies Allergy/AdvReac Type Severity Reaction Status Date / Time fentanyl Allergy Mild RASH Unverified 01/28/20 17:55 oxycodone Allergy Mild RASH Unverified 01/28/20 17:55 Home Medications Home Medications Medication Instructions Recorded Confirmed Type pantoprazole 20 mg tablet,delayed 20 mg PO QAM 06/22/19 01/28/20 History release simvastatin 5 mg tablet 5 mg PO HS 06/22/19 01/28/20 History cyclobenzaprine 10 mg tablet 10 mg PO BID 30 Days #180 tab 10/05/19 01/28/20 Rx lisinopril 20 mg tablet 20 mg PO BID tab 10/05/19 01/28/20 History meloxicam 7.5 mg tablet 7.5 mg PO BID 90 Days #180 tab 10/05/19 01/28/20 Rx propylthiouracil 50 mg tablet 50 mg PO MOWEFR tab 10/05/19 01/28/20 History aspirin 325 mg PO DAILY PRN 01/28/20 01/28/20 History biotin 2,500 mcg PO QAM 01/28/20 01/28/20 History cholecalciferol (vitamin D3) 5,000 units PO QAM 01/28/20 01/28/20 History metoprolol succinate 100 mg PO QAM 01/28/20 01/28/20 History multivitamin 1 tab PO QAM 01/28/20 01/28/20 History pramipexole 0.25 mg PO TID 01/28/20 01/28/20 History Patient History Medical History Bilateral leg weakness Cervical radiculopathy Dyslipidemia Hypertension Low back pain Neck pain Numbness and tingling in both hands Palpitations RLS (restless legs syndrome) SOB (shortness of breath) Tachycardia Thoracic spine pain Surgical History No history of previous surgery Family History Father Hx of CABG Social History Preferred Language: Kazakh Communication Ability: Effective Mainframe Analyst Required: No Beliefs That Will Affect Care: None Current Living Situation: Spouse Other Information That Helps Us Care for You: No Feels Safe at Home: Yes Safety Concerns: Feels Safe At This Time Smoking Status: Current every day smoker Tobacco Type: cigarettes ; Cigarettes Per Day: 5 ; Do You Dip or Chew Tobacco: No ; Second Hand Exposure: Yes ; Tobacco Cessation Education Requested by Patient: No Hx Alcohol Use: Yes Alcohol type: wine Hx Substance Use: No Review of Systems Review of Systems: All systems reviewed & are unremarkable except as noted in Subjective Physical Exam Constitutional: WD/WN, vitals as above Eyes: PERRL, conjunctivae normal, anicteric sclerae Respiratory: normal respiratory effort, lungs clear to auscultation Cardiovascular: Rate/Rhythm: regular rate and regular rhythm Heart Sounds: normal S1 and normal S2; no gallop, no murmur and no cardiac rub Vessels: no JVD Extremities: no pedal edema Gastrointestinal (Abdomen): normal bowel sounds, soft, nontender, no hepatosplenomegaly Skin: no rashes, warm and dry Lymphatic: no cervical or axillary lymphadenopathy Results & Data ([facility]) Vital Signs (Past 12 Hours) Vital Signs Temp Pulse Pulse Resp BP BP Pulse Ox 01/29/20 11:12 36.7 C 86 18 123/83 93 01/29/20 07:14 36.5 C 101 H 18 123/84 93 01/29/20 05:24 100 H 01/29/20 03:46 36.5 C 102 H 18 113/77 93 Laboratory Results 01/29/20 01/29/20 01/29/20 Range/Units 08:19 01:58 01:58 WBC 7.58 (4.8-10.8) K/uL RBC 4.00 L (4.2-5.4) M/uL Hgb 13.3 (12.0-16.0) g/dL Hct 39.7 (37-47) % MCV 99.3 (80-100) fL MCH 33.3 (25-34) pg MCHC 33.5 (32-36) g/dL RDW Std Deviation 46.4 H (36.4-46.3) fL RDW Coeff of Tristen 12.7 (11.5-14.5) % Plt Count 224 (130-400) K/uL MPV 9.6 (7.4-10.4) fL Immature Gran % (Auto) % Neut % (Auto) % Lymph % (Auto) % [place] % (Auto) % Eos % (Auto) % Baso % (Auto) % Immature Gran # (Auto) (0.00-0.02) K/uL Neut # (Auto) (1.4-6.5) K/uL Lymph # (Auto) (1.2-3.4) K/uL [place] # (Auto) (0.11-0.59) K/uL Eos # (Auto) (0-0.5) K/uL Baso # (Auto) (0-0.2) K/uL PT (9.0-12.0) Seconds INR (0.9-1.1) APTT (21.0-31.0) Seconds PTT Ratio D-Dimer (0-500) ug/L FEU Sodium 139 (136-145) mmol/L Potassium 3.8 (3.5-5.1) mmol/L Chloride 107 (98-107) mmol/L Carbon Dioxide 26 (21-32) mmol/L Anion Gap 6.0 (3-11) BUN 10 (7-18) mg/dl Creatinine 0.81 (0.6-1.2) mg/dl Est Cr Clr Drug Dosing 74.2 ml/min Est GFR ( Amer) 92.8 Est GFR (Non-Af Amer) 80.1 BUN/Creatinine Ratio 12.5 (10-20) Glucose 119 H (70-99) mg/dl Calcium 9.1 (8.5-10.1) mg/dl Magnesium (1.8-2.4) mg/dl Total Bilirubin (0.2-1) mg/dl AST (15-37) U/L ALT (12-78) U/L Alkaline Phosphatase (45-117) U/L Total Creatine Kinase (26-192) U/L CK-MB (CK-2) (0.5-3.6) ng/ml CK/CKMB % Calc Troponin I < 0.015 < 0.015 (0-0.045) ng/ml Total Protein (6.4-8.2) gm/dl Albumin (3.4-5.0) gm/dl Globulin (2.5-4.0) gm/dl Albumin/Globulin Ratio (0.9-2) Lipase (73-393) U/L TSH (0.300-4.500) uIu/ml Free T4 (0.8-1.6) ng/dl Hepatitis C Ab Screen (Neg) 01/28/20 01/28/20 01/28/20 Range/Units 20:23 20:23 19:29 WBC (4.8-10.8) K/uL RBC (4.2-5.4) M/uL Hgb (12.0-16.0) g/dL Hct (37-47) % MCV (80-100) fL MCH (25-34) pg MCHC (32-36) g/dL RDW Std Deviation (36.4-46.3) fL RDW Coeff of Tristen (11.5-14.5) % Plt Count (130-400) K/uL MPV (7.4-10.4) fL Immature Gran % (Auto) % Neut % (Auto) % Lymph % (Auto) % [place] % (Auto) % Eos % (Auto) % Baso % (Auto) % Immature Gran # (Auto) (0.00-0.02) K/uL Neut # (Auto) (1.4-6.5) K/uL Lymph # (Auto) (1.2-3.4) K/uL [place] # (Auto) (0.11-0.59) K/uL Eos # (Auto) (0-0.5) K/uL Baso # (Auto) (0-0.2) K/uL PT (9.0-12.0) Seconds INR (0.9-1.1) APTT (21.0-31.0) Seconds PTT Ratio D-Dimer 390 (0-500) ug/L FEU Sodium (136-145) mmol/L Potassium (3.5-5.1) mmol/L Chloride (98-107) mmol/L Carbon Dioxide (21-32) mmol/L Anion Gap (3-11) BUN (7-18) mg/dl Creatinine (0.6-1.2) mg/dl Est Cr Clr Drug Dosing ml/min Est GFR ( Amer) Est GFR (Non-Af Amer) BUN/Creatinine Ratio (10-20) Glucose (70-99) mg/dl Calcium (8.5-10.1) mg/dl Magnesium (1.8-2.4) mg/dl Total Bilirubin (0.2-1) mg/dl AST (15-37) U/L ALT (12-78) U/L Alkaline Phosphatase (45-117) U/L Total Creatine Kinase (26-192) U/L CK-MB (CK-2) (0.5-3.6) ng/ml CK/CKMB % Calc Troponin I < 0.015 (0-0.045) ng/ml Total Protein (6.4-8.2) gm/dl Albumin (3.4-5.0) gm/dl Globulin (2.5-4.0) gm/dl Albumin/Globulin Ratio (0.9-2) Lipase (73-393) U/L TSH (0.300-4.500) uIu/ml Free T4 (0.8-1.6) ng/dl Hepatitis C Ab Screen Neg (Neg) 01/28/20 01/28/20 01/28/20 Range/Units 19:29 16:12 16:12 WBC (4.8-10.8) K/uL RBC (4.2-5.4) M/uL Hgb (12.0-16.0) g/dL Hct (37-47) % MCV (80-100) fL MCH (25-34) pg MCHC (32-36) g/dL RDW Std Deviation (36.4-46.3) fL RDW Coeff of Tristen (11.5-14.5) % Plt Count (130-400) K/uL MPV (7.4-10.4) fL Immature Gran % (Auto) % Neut % (Auto) % Lymph % (Auto) % [place] % (Auto) % Eos % (Auto) % Baso % (Auto) % Immature Gran # (Auto) (0.00-0.02) K/uL Neut # (Auto) (1.4-6.5) K/uL Lymph # (Auto) (1.2-3.4) K/uL [place] # (Auto) (0.11-0.59) K/uL Eos # (Auto) (0-0.5) K/uL Baso # (Auto) (0-0.2) K/uL PT 10.5 (9.0-12.0) Seconds INR 1.0 (0.9-1.1) APTT 25.0 (21.0-31.0) Seconds PTT Ratio 0.9 D-Dimer (0-500) ug/L FEU Sodium 138 (136-145) mmol/L Potassium 3.6 (3.5-5.1) mmol/L Chloride 106 (98-107) mmol/L Carbon Dioxide 25 (21-32) mmol/L Anion Gap 7.0 (3-11) BUN 9 (7-18) mg/dl Creatinine 0.94 (0.6-1.2) mg/dl Est Cr Clr Drug Dosing 64.0 ml/min Est GFR ( Amer) 77.5 Est GFR (Non-Af Amer) 66.9 BUN/Creatinine Ratio 9.8 L (10-20) Glucose 114 H (70-99) mg/dl Calcium 10.2 H (8.5-10.1) mg/dl Magnesium 2.2 (1.8-2.4) mg/dl Total Bilirubin 0.3 (0.2-1) mg/dl AST 56 H (15-37) U/L ALT 75 (12-78) U/L Alkaline Phosphatase 138 H (45-117) U/L Total Creatine Kinase 104 (26-192) U/L CK-MB (CK-2) < 1.0 (0.5-3.6) ng/ml CK/CKMB % Calc TNP Troponin I < 0.015 < 0.015 (0-0.045) ng/ml Total Protein 8.3 H (6.4-8.2) gm/dl Albumin 4.2 (3.4-5.0) gm/dl Globulin 4.1 H (2.5-4.0) gm/dl Albumin/Globulin Ratio 1.0 (0.9-2) Lipase 606 H (73-393) U/L TSH 5.110 H (0.300-4.500) uIu/ml Free T4 1.03 (0.8-1.6) ng/dl Hepatitis C Ab Screen (Neg) 01/28/20 Range/Units 16:12 WBC 8.64 (4.8-10.8) K/uL RBC 4.24 (4.2-5.4) M/uL Hgb 14.3 (12.0-16.0) g/dL Hct 41.9 (37-47) % MCV 98.8 (80-100) fL MCH 33.7 (25-34) pg MCHC 34.1 (32-36) g/dL RDW Std Deviation 45.7 (36.4-46.3) fL RDW Coeff of Tristen 12.7 (11.5-14.5) % Plt Count 268 (130-400) K/uL MPV 10.1 (7.4-10.4) fL Immature Gran % (Auto) 0.3 % Neut % (Auto) 56.5 % Lymph % (Auto) 34.8 % [place] % (Auto) 5.9 % Eos % (Auto) 2.2 % Baso % (Auto) 0.3 % Immature Gran # (Auto) 0.03 H (0.00-0.02) K/uL Neut # (Auto) 4.87 (1.4-6.5) K/uL Lymph # (Auto) 3.01 (1.2-3.4) K/uL [place] # (Auto) 0.51 (0.11-0.59) K/uL Eos # (Auto) 0.19 (0-0.5) K/uL Baso # (Auto) 0.03 (0-0.2) K/uL PT (9.0-12.0) Seconds INR (0.9-1.1) APTT (21.0-31.0) Seconds PTT Ratio D-Dimer (0-500) ug/L FEU Sodium (136-145) mmol/L Potassium (3.5-5.1) mmol/L Chloride (98-107) mmol/L Carbon Dioxide (21-32) mmol/L Anion Gap (3-11) BUN (7-18) mg/dl Creatinine (0.6-1.2) mg/dl Est Cr Clr Drug Dosing ml/min Est GFR ( Amer) Est GFR (Non-Af Amer) BUN/Creatinine Ratio (10-20) Glucose (70-99) mg/dl Calcium (8.5-10.1) mg/dl Magnesium (1.8-2.4) mg/dl Total Bilirubin (0.2-1) mg/dl AST (15-37) U/L ALT (12-78) U/L Alkaline Phosphatase (45-117) U/L Total Creatine Kinase (26-192) U/L CK-MB (CK-2) (0.5-3.6) ng/ml CK/CKMB % Calc Troponin I (0-0.045) ng/ml Total Protein (6.4-8.2) gm/dl Albumin (3.4-5.0) gm/dl Globulin (2.5-4.0) gm/dl Albumin/Globulin Ratio (0.9-2) Lipase (73-393) U/L TSH (0.300-4.500) uIu/ml Free T4 (0.8-1.6) ng/dl Hepatitis C Ab Screen (Neg) Medications Administered Current Inpatient Medications Acetaminophen (Tylenol) 650 mg PO Q4H PRN PRN Reason: pain/fever Stop: 02/27/20 19:50 Aspirin (Ecotrin) 325 mg PO DAILY PRN PRN Reason: Pain Stop: 02/27/20 19:50 Aspirin (Ecotrin) 325 mg PO QAM [facility] Stop: 02/27/20 19:59 Last Admin: 01/29/20 08:16 Dose: 325 mg Documented by: Cyclobenzaprine HCl (Flexeril) 10 mg PO BID REGGIE Stop: 02/27/20 20:59 Last Admin: 01/29/20 08:16 Dose: 10 mg Documented by: Heparin Sodium (Porcine) (Heparin Sodium (Porcine)) 5,000 units SQ Q8 REGGIE Stop: 02/27/20 21:59 Last Admin: 01/29/20 05:06 Dose: 5,000 units Documented by: Ioversol (Optiray 320 125ml) 118 ml IV ONCE PRN PRN Reason: Interaction Checking Stop: 02/01/20 18:59 Last Admin: 01/28/20 19:01 Dose: 1 ml Documented by: Lisinopril (Zestril) 20 mg PO BID REGGIE Stop: 02/27/20 20:59 Last Admin: 01/29/20 08:16 Dose: 20 mg Documented by: Magnesium Hydroxide (Milk Of Magnesia) 30 ml PO Q6H PRN PRN Reason: Constipation Stop: 02/27/20 19:50 Meloxicam (Mobic) 7.5 mg PO BID REGGIE Stop: 02/27/20 20:59 Last Admin: 01/29/20 08:16 Dose: 7.5 mg Documented by: Metoprolol Succinate (Toprol Xl) 100 mg PO QAM [facility] Stop: 02/28/20 08:59 Last Admin: 01/29/20 08:15 Dose: 100 mg Documented by: Morphine Sulfate (Morphine Sulfate) 4 mg IV Q4 PRN PRN Reason: Pain Stop: 02/11/20 19:50 Multivitamins (Multivitamin Tab) 1 tab PO Q[place]COG[place] Stop: 02/28/20 08:59 Last Admin: 01/29/20 08:15 Dose: 1 tab Documented by: Nitroglycerin (Nitrostat) 0.4 mg SL UD PRN PRN Reason: Chest Pain Stop: 02/27/20 16:18 Last Admin: 01/28/20 17:07 Dose: 0.4 mg Documented by: Ondansetron HCl (Zofran) 4 mg IV Q6H PRN PRN Reason: Nausea Stop: 02/27/20 19:50 Pantoprazole Sodium (Protonix) 40 mg PO Q[place] Stop: 02/28/20 08:59 Last Admin: 01/29/20 08:15 Dose: 40 mg Documented by: Pramipexole Dihydrochloride (Mirapex) 0.25 mg PO TID [facility] Stop: 02/27/20 20:59 Last Admin: 01/29/20 08:16 Dose: 0.25 mg Documented by: Propylthiouracil (Ptu) 50 mg PO MoWeFr@0900 [facility] Stop: 02/28/20 08:59 Last Admin: 01/29/20 08:16 Dose: 50 mg Documented by: Simvastatin (Zocor) 5 mg PO HS [facility] Stop: 02/27/20 20:59 Last Admin: 01/28/20 21:27 Dose: 5 mg Documented by: Vitamin D (Vitamin D3) 5,000 units PO Q[place] Stop: 02/28/20 08:59 Last Admin: 01/29/20 08:15 Dose: 5,000 units Documented by: PG Care Time/CCT Total # of Minutes Spent Total Time Spent with Patient: Total time spent is greater than 50% in coordination of care (as documented) at patient's floor/unit and/or counseling patient: Coding Diagnoses Atypical chest pain R07.89 Resident Activity Tracking Resident Involvement: Resident Care Provided Care Provided: Adult Hospital Medicine (Cardiology)
--- NOTE | 2020-01-29 12:39 | XCELERA ---
[id number]
--- NOTE | 2020-01-29 16:50 | Electrocardiogram Report ---
Test Reason : Blood Pressure : / mmHG Vent. Rate : 117 BPM Atrial Rate : 117 BPM P-R Int : 128 ms QRS Dur : 080 ms QT Int : 312 ms P-R-T Axes : 058 034 054 degrees QTc Int : 435 ms Sinus tachycardia Possible Anterior infarct , age undetermined Abnormal ECG No previous ECGs available Confirmed by Wily Ghosh ([id number]) on 01/29/2020 4:50:06 PM Referred By: REFERRED SELF Confirmed By:Wily Ghosh
== END 2020-01-29 16:18 | disposition home or self-care (01) ==
LOC: ED 15:59 → 2N 15:59